=== PATIENT | female | born 1975 | race African-American/Black ===

== ENCOUNTER 2024-05-19 08:22 | Emergency (ER) | payer SELFPAY ==
[2024-05-19 08:27] VITALS: TEMP 99; BMI 35.5
[2024-05-19 10:57] LABS: POTASSIUM 4.2 mmol/L (3.5-5.1)
[2024-05-19 10:59] LABS: BLOOD UREA NITROGEN 10.3 mg/dL (7-18)
[2024-05-19 11:02] LABS: CREATININE 0.8 mg/dL (0.55-1.3)
[2024-05-19 11:04] LABS: BILIRUBIN,TOTAL 0.6 mg/dL (0.2-1); TOT PROT 7.2 g/dl (6.4-8.2)
[2024-05-19 11:14] LABS: EOS % 4.2 % (0-4.5); HEMATOCRIT 42.1 % (32.4-45.2); HEMOGLOBIN 14.2 GM/dL (10.7-15.3); LYMPH % 33.8 % (8-40); MCH 30.9 pg (25.7-33.7); MCHC 33.8 g/dl (32.0-36.0); MEAN CELL VOLUME 91.3 fl (80-96); MEAN PLT VOLUME 8.8 fl (7.5-11.1); MONO % 7.1 % (3.8-10.2); NEUT % 53.9 % (42.8-82.8); PLATELET COUNT 209 10^3/uL (134-434); RBC 4.61 M/mm3 (3.60-5.2); RDW 13.6 % (11.6-15.6); WHITE BLOOD COUNT 4.9 K/mm3 (4.0-10.0)
[2024-05-19 12:01] VITALS: BP 138/60; PULSE 84; RESP 18
== END 2024-05-19 12:01 | disposition home or self-care (01) ==
LOC: JER 08:22
DX: R10.13 Epigastric pain (principal); R07.2 Precordial pain
CPT/HCPCS: 71045-TC-FY; 80053; 83735; 84484; 84703; 85025; 86850; 86900; 86901; 93005; 93010; 99285-25